=== PATIENT | female | born 1975 | race Hispanic/Latino ===

== ENCOUNTER 2017-05-31 14:06 | Inpatient (IN) | payer MEDICAID, OTHER ==
[2017-05-31 14:15] VITALS: O2SAT 100
--- NOTE | 2017-05-31 14:26 | ED PDOC ---
HPI: Psych/Substance Abuse Time Seen by Provider: 05/31/17 14:21 Chief Complaint (Nursing): Psychiatric Evaluation Chief Complaint (Provider): crisis eval History Per: Patient Additional Complaint(s): 42 year old with history of major depression presents to ED for evaluation of worsening depression. Patient has history of previous suicide attempts. Her sister called crisis department out of concern that patient was seen yesterday at [facility] ED but was not admitted psychiatrically. Patient upon arrival, denies suicidal or homicidal ideation. She offers no acute medical complaints upon arrival. She admits to being non-compliant with her psych meds. Past Medical History Reviewed: Historical Data, Nursing Documentation, Vital Signs Vital Signs: Last Vital Signs Temp 97.7 F 05/31/17 14:11 Pulse 82 05/31/17 14:11 Resp 16 05/31/17 14:11 BP 114/64 05/31/17 14:11 Pulse Ox 100 05/31/17 14:11 - Medical History PMH: Anemia, Anxiety, Asthma, Depression, Hypothyroidism, Migraine - Surgical History Surgical History: Cholecystectomy - Family History Family History: States: No Known Family Hx - Living Arrangements Living Arrangements: With Family - Social History Current smoker - smoking cessation education provided: No Alcohol: None Drugs: Denies - Home Medications Home Medications: Ambulatory Orders Medication Instructions Recorded traZODone [Desyrel] 150 mg PO HS #30 tab 03/29/17 Acetaminophen/Butalbital/Caf 1 tab PO Q8 PRN #10 tab 05/30/17 [Fioricet] Venlafaxine [Effexor XR] 150 mg PO DAILY 05/31/17 - Allergies Allergies/Adverse Reactions: Allergies Allergy/AdvReac Type Severity Reaction Status Date / Time sertraline [From Zoloft] Allergy Intermediate RASH Verified 05/31/17 14:11 Review of Systems ROS Statement: Except As Marked, All Systems Reviewed And Found Negative Constitutional: Negative for: Fever Cardiovascular: Negative for: Chest Pain Respiratory: Negative for: Cough Gastrointestinal: Negative for: Nausea, Vomiting Psych: Positive for: Depression. Negative for: Suicidal ideation Physical Exam - Reviewed Nursing Documentation Reviewed: Yes Vital Signs Reviewed: Yes - Physical Exam Appears: Positive for: Well, Non-toxic, No Acute Distress Skin: Negative for: Rash Eye Exam: Positive for: Normal appearance, EOMI, PERRL Neck: Positive for: Normal Cardiovascular/Chest: Positive for: Regular Rate, Rhythm Respiratory: Positive for: Normal Breath Sounds Gastrointestinal/Abdominal: Positive for: Soft. Negative for: Tenderness, Distended, Guarding, Rebound Back: Negative for: L CVA Tenderness, R CVA Tenderness Extremity: Positive for: Normal ROM Neurologic/Psych: Positive for: Alert, Oriented, Mood/Affect (flat) - Laboratory Results Result Diagrams: 05/31/17 14:58 05/31/17 14:58 Urine POC: Negative Urine dip results: Negative for: Leukocyte Esterase, Blood, Nitrate, Ketones, Glucose, Bilirubin, Protein - ECG Interpretation Of ECG: NSR 73 bpm, no acute change, reviewed by PA and ED attending. O2 Sat by Pulse Oximetry: 100 Pulse Ox Interpretation: Normal - Other Rad CXR X-Ray: Interpreted by Me, Viewed By Me X-Ray Interpretation: no acute finding, no interval changes Medical Decision Making Medical Decision Makin42 year old here for crisis eval Plan: Crisis eval CBC CMP BAL UDSUA EKG CXR As per crisis counselor and psychiatrist motion picture printer, Dr. Zhang, patient does meet criteria for admission. Patient agrees to stay and signed herself in. K is low at 2.9, replacement of 40 meq PO given, d/w Dr. Mcmahan. Patient is medically stable for psychiatric admission. Disposition - Clinical Impression Clinical Impression: Depression - Patient ED Disposition Is Patient to be Admitted: Yes - Disposition Disposition Time: 14:29 Condition: FAIR Forms: Tapastreet (Indonesian) - Pt Status Changed To: Hospital Disposition Of: Inpatient - Admit Certification Admit to Inpatient:: After my assessment, the patient will require hospitalization for at least two midnights. This is because of the severity of symptoms shown, intensity of services needed, and/or the medical risk in this patient being treated as an outpatient. Results - Lab Results Lab Results: 05/31/17 05/31/17 05/31/17 14:58 14:58 14:45 WBC 6.8 RBC 4.39 Hgb 12.2 Hct 37.5 MCV 85.4 MCH 27.8 MCHC 32.5 L RDW 14.4 Plt Count 229 MPV 9.4 Neut % (Auto) 63.8 Lymph % (Auto) 30.2 [place] % (Auto) 5.3 Eos % (Auto) 0.2 Baso % (Auto) 0.5 Neut # 4.4 Lymph # 2.1 [place] # 0.4 Eos # 0.0 Baso # 0.0 Sodium 138 Potassium 2.9 L Chloride 106 Carbon Dioxide 20 L Anion Gap 15 BUN 5 L Creatinine 0.5 L Est GFR ( Amer) > 60 Est GFR (Non-Af Amer) > 60 Random Glucose 145 H Calcium 9.1 Total Bilirubin 0.5 AST 22 ALT 27 Alkaline Phosphatase 72 Total Protein 7.6 Albumin 4.1 Globulin 3.5 Albumin/Globulin Ratio 1.2 Urine Color Colorless Urine Clarity Clear Urine pH 7.0 Ur Specific [place] < 1.005 Urine Protein Negative Urine Glucose (UA) Neg Urine Ketones Negative Urine Blood Negative Urine Nitrate Negative Urine Bilirubin Negative Urine Urobilinogen 0.2-1.0 Ur Leukocyte Esterase Neg Urine Microscopic WBC < 1 Ur Squamous Epith Cells < 1 Urine Bacteria Rare Urine Opiates Screen Urine Methadone Screen Ur Barbiturates Screen Ur Phencyclidine Scrn Ur Amphetamines Screen U Benzodiazepines Scrn U Oth Cocaine Metabols U Cannabinoids Screen Alcohol, Quantitative < 10 05/31/17 14:45 WBC RBC Hgb Hct MCV MCH MCHC RDW Plt Count MPV Neut % (Auto) Lymph % (Auto) [place] % (Auto) Eos % (Auto) Baso % (Auto) Neut # Lymph # [place] # Eos # Baso # Sodium Potassium Chloride Carbon Dioxide Anion Gap BUN Creatinine Est GFR ( Amer) Est GFR (Non-Af Amer) Random Glucose Calcium Total Bilirubin AST ALT Alkaline Phosphatase Total Protein Albumin Globulin Albumin/Globulin Ratio Urine Color Urine Clarity Urine pH Ur Specific [place] Urine Protein Urine Glucose (UA) Urine Ketones Urine Blood Urine Nitrate Urine Bilirubin Urine Urobilinogen Ur Leukocyte Esterase Urine Microscopic WBC Ur Squamous Epith Cells Urine Bacteria Urine Opiates Screen Negative Urine Methadone Screen Negative Ur Barbiturates Screen Positive H Ur Phencyclidine Scrn Negative Ur Amphetamines Screen Negative U Benzodiazepines Scrn Negative U Oth Cocaine Metabols Negative U Cannabinoids Screen Negative Alcohol, Quantitative
[2017-05-31 15:18] LABS: BASO % 0.5 % (0.0-2.0); EOS % 0.2 % (0.0-4.0); HEMOGLOBIN 12.2 g/dL (12.0-16.0); LYMPH # 2.1 K/uL (1.0-4.3); LYMPH % 30.2 % (20.0-40.0); MEAN CELL VOLUME 85.4 fl (81.0-99.0); MEAN CORPUSCULAR HEMOGLOBIN 27.8 pg (27.0-31.0); MEAN CORPUSCULAR HGB CONC 32.5 g/dL (33.0-37.0); MEAN PLATELET VOLUME 9.4 fl (7.2-11.7); MONO # 0.4 K/uL (0.0-0.8); MONO % 5.3 % (0.0-10.0); NEUT # 4.4 K/uL (1.8-7.0); NEUT % 63.8 % (50.0-75.0); NRBC % 0.1 % (0.0-0.0); RBC 4.39 Mil/uL (3.80-5.20); RED CELL DISTRIBUTION WIDTH 14.4 % (11.5-14.5); WHITE BLOOD COUNT 6.8 K/uL (4.8-10.8)
[2017-05-31 15:21] LABS: SQUAMOUS EPITHIAL < 1 /hpf (0-5); URINE BACTERIA RARE (<OCC); URINE BILIRUBIN NEGATIVE (NEGATIVE); URINE BLOOD NEGATIVE (NEGATIVE); URINE CLARITY CLEAR (Clear); URINE COLOR COLORLESS (YELLOW); URINE GLUCOSE (UA) NEG (Normal); URINE LEUKOCYTE ESTERASE NEG Leu/uL (Negative); URINE NITRATE NEGATIVE (NEGATIVE); URINE PROTEIN NEGATIVE (NEGATIVE); URINE UROBILINOGEN 0.2-1.0 mg/dL (0.2-1.0)
[2017-05-31 15:26] LABS: ALB/GLOB RATIO 1.2 (1.0-2.1); ALBUMIN 4.1 g/dL (3.5-5.0); ALT/SGPT 27 U/L (9-52); AST/SGOT 22 U/L (14-36); BLOOD UREA NITROGEN 5 mg/dl (7-17); CALCIUM 9.1 mg/dL (8.4-10.2); GFR AFRICAN-AMERICAN > 60; GFR NON-AFRICAN AMERICAN > 60
[2017-05-31 15:38] LABS: BARBITURATES, UR POSITIVE (NEGATIVE); BENZODIAZEPINES, UR NEGATIVE (NEGATIVE); OPIATES, UR NEGATIVE (NEGATIVE); PHENCYCLIDINE, UR NEGATIVE (NEGATIVE)
[2017-05-31] MEDS ORDERED: Potassium Chloride 20 mEq ER Tab PO STA (15:39)
[2017-05-31] MEDS ORDERED: Magnesium Hydroxide Susp 30 ml UD PO PRN (18:05)
[2017-05-31] MEDS ORDERED: Alum-Mag Hydrox-Simethicone Susp (30 mL) PO PRN (18:05)
[2017-05-31] MEDS ORDERED: DiphenhydrAMINE 50 mg/ml Inj IM PRN (18:05)
[2017-05-31] MEDS: Apap-Butalbital-Caffeine 325-50-40mg Tab PO PRN (20:04)
--- NOTE | 2017-05-31 20:50 | CP.PCM.CON ---
History of Present Illness - History of Present Illness History of Present Illness: Medicine consult PMD Dr Marquez Rodriguez Hx taken from patient we are called to evaluate this 42 y/o F with PMhx of depression, chronic headaches and opioids abuse presents to hosp c/o worsening depression. Patient has Hx of chronic depression, denies suicidal or homicidal ideation but states she would like help to get better of her depression. She states taking meds as prescribed. Patient has Hx of chronic headaches for she takes Fioricet PRN. and F/U with Dr Krueger(neurologist). She states she has headaches everyday and they are intermittent, located in the R/side of the head and R/eye. Denies paresthesias, nausea, vomiting, CP, palpitations, SOB, vision changes. She also c/o watery diarrhea for the past 5 days, NBNM, 4-5 episode per/day. Denies taking abx recently and does not recall when was the last time. No recent travel hx or medication changes as per patient. ED course: VS WNL CBC WNL potassium 2.9: 40 meq KCL given at ED Utox positive for barbiturates(patient on Fioricet) Review of Systems - Review of Systems All systems: reviewed and no additional remarkable complaints except - Constitutional Constitutional: Headache - Gastrointestinal Gastrointestinal: Diarrhea - Psychiatric Psychiatric: Depression. absent: Homicidal Ideation, Suicidal Ideation Past Patient History - Infectious Disease Hx of Infectious Diseases: None - Past Medical History & Family History Past Medical History?: Yes - Past Social History Alcohol: None Drugs: Denies - CARDIAC Hx Cardiac Disorders: No - PULMONARY Hx Respiratory Disorders: No - NEUROLOGICAL Hx Neurological Disorder: Yes Hx Migraine: Yes - HEENT Hx HEENT Problems: No - RENAL Hx Chronic Kidney Disease: No - ENDOCRINE/METABOLIC Hx Endocrine Disorders: No Hx Hypothyroidism: No - HEMATOLOGICAL/ONCOLOGICAL Hx Blood Disorders: No - INTEGUMENTARY Hx Dermatological Problems: No - MUSCULOSKELETAL/RHEUMATOLOGICAL Hx Musculoskeletal Disorders: No - GASTROINTESTINAL Hx Gastrointestinal Disorders: No - GENITOURINARY/GYNECOLOGICAL Hx Genitourinary Disorders: No Hx Sexually Transmitted Disorders: No - PSYCHIATRIC Hx Depression: Yes Hx Substance Use: Yes (opiates) - SURGICAL HISTORY Hx Section: Yes Hx Cholecystectomy: Yes Hx Musculoskeletal Surgery: Yes (Ankle) - ANESTHESIA Hx Anesthesia: Yes Hx Anesthesia Reactions: No Meds Allergies/Adverse Reactions: Allergies Allergy/AdvReac Type Severity Reaction Status Date / Time sertraline [From Zoloft] Allergy Intermediate RASH Verified 05/31/17 14:11 - Medications Medications: Current Medications Acetaminophen (Tylenol 325mg Tab) 650 mg PO Q4 PRN PRN Reason: Pain, moderate (4-7) Acetaminophen/Butalbital/Caffeine (Fioricet) 1 tab PO Q8 PRN PRN Reason: migrane Last Admin: 05/31/17 20:04 Dose: 1 tab Al Hydrox/Mg Hydrox/Simethicone (Maalox Plus 30 Ml) 30 ml PO Q4 PRN PRN Reason: Dyspepsia Diphenhydramine HCl (Benadryl) 50 mg IM Q6 PRN PRN Reason: Extrapyramidal S/S Unable PO Diphenhydramine HCl (Benadryl) 50 mg PO Q6 PRN PRN Reason: Extrapyramidal Symptoms Haloperidol (Haldol) 5 mg PO Q8 YVETTE Haloperidol Lactate (Haldol) 5 mg IM Q8 YVETTE Lorazepam (Ativan) 0.5 mg IM Q4 PRN PRN Reason: Anxiety/Agitation,Unable PO Lorazepam (Ativan) 0.5 mg PO Q4 PRN PRN Reason: Anxiety/Agitation Magnesium Hydroxide (Milk Of Magnesia) 30 ml PO HS PRN PRN Reason: Constipation Trazodone HCl (Desyrel) 50 mg PO HS YVETTE Physical Exam - Constitutional Appears: Non-toxic, No Acute Distress - Head Exam Head Exam: NORMAL INSPECTION - Eye Exam Eye Exam: EOMI, PERRL - ENT Exam ENT Exam: Mucous Membranes Moist - Respiratory Exam Respiratory Exam: Clear to Auscultation Bilateral, NORMAL BREATHING PATTERN. absent: Rales, Wheezes - Cardiovascular Exam Cardiovascular Exam: REGULAR RHYTHM, +S1, +S2. absent: Gallop - GI/Abdominal Exam GI & Abdominal Exam: Normal Bowel Sounds, Soft. absent: Distended, Guarding, Mass, Tenderness - Extremities Exam Extremities exam: Positive for: normal inspection. Negative for: calf tenderness, joint swelling, tenderness - Neurological Exam Neurological exam: Alert, Normal Gait, Oriented x3 - Psychiatric Exam Psychiatric exam: Depressed - Skin Skin Exam: Normal Color, Warm Results - Vital Signs Recent Vital Signs: Last Vital Signs Temp 97.7 F 05/31/17 16:57 Pulse 82 05/31/17 16:57 Resp 18 05/31/17 17:41 BP 114/64 05/31/17 16:57 Pulse Ox 100 05/31/17 15:44 - Labs Result Diagrams: 05/31/17 14:58 05/31/17 14:58 Assessment & Plan - Assessment and Plan (Free Text) Assessment: 42 y/o F with PMHx of Depression and Migraines admitted to hosp for worsening depression Depression(chronic) no currently suicidal or homicidal Managed by Psych team Migraine headaches c/w Fioricet Q8h PRN(home med) Acute Diarrhea no Hx of recent abx use VS WNL Florastor BID F/U O&P x3 F/U stool Cx regular diet Encouraged to drink plenty of fluids No signs of dehydration at this time Hypokalemia Poss due to diarrhea S/P 40meq of KCL at ED F/U BMP tomorrow
[2017-06-01] MEDS: Apap-Butalbital-Caffeine 325-50-40mg Tab PO PRN ×2 (07:00→16:34)
[2017-06-01 07:22] LABS: BLOOD UREA NITROGEN 5 mg/dl (7-17); CALCIUM 8.8 mg/dL (8.4-10.2); GFR AFRICAN-AMERICAN > 60; GFR NON-AFRICAN AMERICAN > 60; HDL CHOLESTEROL 50 MG/DL (30-70)
[2017-06-01 07:33] LABS: LDL CHOLESTEROL 137 mg/dL (0-129)
[2017-06-01 07:39] LABS: T4 8.18 ug/dl (5.5-11.0)
--- NOTE | 2017-06-01 07:40 | CARD ---
APPROVED REPORT EKG Measurement Heart [id number] <Conclusion> Normal sinus rhythm Minimal voltage criteria for LVH, may be normal variant Borderline ECG
[2017-06-01] MEDS: Saccharomyces Boulardi 250 mg Cap PO SCH ×2 (08:17→16:36)
--- NOTE | 2017-06-01 08:36 | RAD ---
HISTORY: clearance COMPARISON: Comparison is made to 11/29/2015 FINDINGS: LUNGS: No significant interval change in the lungs noted. PLEURA: No significant pleural effusion identified, no pneumothorax apparent. CARDIOVASCULAR: Normal. OSSEOUS STRUCTURES: No significant abnormalities. VISUALIZED UPPER ABDOMEN: Normal. OTHER FINDINGS: None. IMPRESSION: No active disease.
--- NOTE | 2017-06-01 09:01 | PCM.PSYCH ---
Initial Psychiatric Evaluation - Initial Psychiatric Evaluation Type of Admission: Voluntary Legal Status: Capacity Chief Complaint (in patient's own words): "I've been depressed." Patient's Reaction to Hospitalization: HPI: 42 yo female presented w/ worsening depression and passive suicidal ideation (w/o plan/intent) in the context of non-compliance. + Depressed mood +Anxiety +Sleep/appetite disturbances. NO current SI/HI/AH/VH. The bulb farmworker received several calls from the patient's "sister" requesting that the patient be admitted to the hospital. Patient later admitted to video game script writer that she is the one who made those phone calls because she wanted to be admitted. She now states that she wants to go home because she is not an acute danger to herself and would like to restart her medications and get outpatient treatment. She also reports a significant history of prescription opioid abuse and states that she is having difficulty transitioning to a life w/o prescription opioids. PPHx: Pt has multiple past psyciatric admission and h/o detox at [facility]. Last admission March 2017. Outpatient tx w/ Dr. Hutson. H/O suicide attempt by overdose March 2017. PMHx: Migraines SHx: From [facility]. Has 3 children who are under the care of her sister. H/o opioid abuse in remission. ALL: NKDA Current Medications: Active Medications Generic Name Dose Route Start Last Admin Trade Name Freq PRN Reason Stop Dose Admin Acetaminophen 650 mg 05/31/17 18:05 Tylenol 325mg Tab PO Q4 PRN Pain, moderate (4-7) Acetaminophen/Butalbital/Caffeine 1 tab 05/31/17 19:38 06/01/17 07:00 Fioricet PO 1 tab Q8 PRN Administration migrane Al Hydrox/Mg Hydrox/Simethicone 30 ml 05/31/17 18:05 Maalox Plus 30 Ml PO Q4 PRN Dyspepsia Diphenhydramine HCl 50 mg 05/31/17 18:05 Benadryl IM Q6 PRN Extrapyramidal S/S Unable PO Diphenhydramine HCl 50 mg 05/31/17 18:05 Benadryl PO Q6 PRN Extrapyramidal Symptoms Haloperidol 5 mg 06/01/17 08:03 Haldol PO Q8 PRN Agitation Haloperidol Lactate 5 mg 06/01/17 08:04 Haldol IM Q8 PRN Agitation Lorazepam 0.5 mg 05/31/17 18:05 Ativan IM Q4 PRN Anxiety/Agitation,Unable PO Lorazepam 0.5 mg 05/31/17 18:30 Ativan PO Q4 PRN Anxiety/Agitation Magnesium Hydroxide 30 ml 05/31/17 18:05 Milk Of Magnesia PO HS PRN Constipation Saccharomyces Boulardii 250 mg 06/01/17 09:00 06/01/17 08:17 Florastor PO 250 mg BID YVETTE Administration Trazodone HCl 50 mg 05/31/17 22:00 05/31/17 21:00 Desyrel PO 50 mg HS YVETTE Administration Past Psychiatric History - Past Psychiatric History Previous Treatment History: Inpatient Pertinent Medical Hx (Current Medical&Sleep Prob, Allergies): Allergies Allergy/AdvReac Type Severity Reaction Status Date / Time sertraline [From Zoloft] Allergy Intermediate RASH Verified 05/31/17 14:11 traZODone [Desyrel] 150 mg PO HS #30 tab 03/29/17 Acetaminophen/Butalbital/Caf [Fioricet] 1 tab PO Q8 PRN #10 tab 05/30/17 Venlafaxine [Effexor XR] 150 mg PO DAILY 05/31/17 Review of Systems - Psychiatric Psychiatric: As Per HPI, Abnormal Sleep Pattern, Anhedonia, Anxiety, Change in Appetite, Depression, Mood Swings, Suicidal Ideation (Passive, no active plan or intent) Mental Status Examination - Personal Presentation Personal Presentation: Looks stated age - Affect Affect: Broad - Motor Activity Motor Activity: Calm - Reliability in Providing Information Reliability in Providing Information: Good (Good, but tells lies at times ) - Speech Speech: Organized - Mood Mood: Depressed - Formal Thought Process Formal Thought Process: No Impairment - Hallucinations/Delusions Additional comments: No AH/VH/paranoia/delusions - Obsessions/Compulsions Obsessions: No Compulsions: No - Cognitive Functions Orientation: Person, Place, Situation, Time Sensorium: Alert Attention/Concentration: Attentive Judgement: Intact, as evidence by: Insight regarding need for hospitalization Memory: Recent intact, as evidence by: Ability to recall events of the day, Remote intact, as evidenced by: Abilit to recall sig. life events, Remote intact , as evidenced by: Ability to recall historical events - Risk Risk: Diminished functioning - Strength & Assets Inventory Strength & Assets Inventory: Family support, Cooperative DSM 5 DX - DSM 5 DSM 5 Diagnosis: Major Depressive Disorder; Opioid Use Disorder - Recommended/Plan of Treatment Treatment Recommendations and Plan of Treatment: Major Depressive Disorder; Opioid Use Disorder -Admit to psychiatry -Restart Effexor 75 mg PO Daily -Continue Trazodone 150 mg PO HS -Patient will be given a 48 hour letter at her request -Individual and group therapy -Disposition planning Projected ELOS: 2-5 days Discharge Plan and Discharge Criteria: Discharge when psychiatrically stable - Smoking Cessation Smoking Cessation Initiated: No Reason for not providing: Not indicated
[2017-06-02] MEDS: Apap-Butalbital-Caffeine 325-50-40mg Tab PO PRN ×2 (04:31→18:31)
[2017-06-02] MEDS: Saccharomyces Boulardi 250 mg Cap PO SCH ×2 (08:12→16:03)
--- NOTE | 2017-06-02 10:06 | PCM.PYCHPN ---
Psychiatric Progress Note - Psychiatric Progress Note Patient seen today, length of contact: Patient evaluated, case discussed with team, chart reviewed, 35 min Patient Chief Complaint: "I'm feeling better" Problems Identified/Issues Discussed: Patient discussed her concerns about relapsing on drugs. Psychoeducation and motivational therapy provided. She reports that her mood is improving. We discussed the importance of compliance with medications. No suicidal ideation. Patient is requesting to be discharged, she submitted a 48 hour letter and then later retracted it. We discussed likely discharge tomorrow. Medication Change: No Medical Record Reviewed: Yes Mental Status Examination - Cognitive Function Orientation: Person, Place, Situation, Time Memory: Intact Attention: WNL Concentration: WNL Association: WNL Fund of Knowledge: WNL - Mood Mood: Depressed - Affect Affect: Broad - Speech Speech: Appropriate - Formal Thought Process Formal Thought Process: No Impairment Psychotic Thoughts and Behaviors: NO AH/VH/paranoia/delusions - Suicidal Ideation Suicidal Ideation: No - Homicidal Ideation Homicidal Ideation: No Goal/Treatment Plan - Goal/Treatment Plan Need for Continued Stay: Remain at risks for inpatient hospitalization, Severe depression anxiety Progress Toward Problem(s) and Goals/Treatment Plan: Major Depressive Disorder; Opioid Use Disorder -Continue Effexor 75 mg PO Daily -Continue Trazodone 150 mg PO HS -Individual and group therapy -Disposition planning- likely discharge tomorrow w/ outpatient follow-up Estimated Date of D/C: 06/03/17
[2017-06-03] MEDS: Apap-Butalbital-Caffeine 325-50-40mg Tab PO PRN (05:21)
[2017-06-03 06:39] VITALS: BP 106/72; PULSE 59; RESP 20; TEMP 97.9
[2017-06-03 07:50] LABS: BLOOD UREA NITROGEN 7 mg/dl (7-17); CALCIUM 8.9 mg/dL (8.4-10.2); GFR AFRICAN-AMERICAN > 60; GFR NON-AFRICAN AMERICAN > 60
[2017-06-03] MEDS: Saccharomyces Boulardi 250 mg Cap PO SCH (08:26)
--- NOTE | 2017-06-03 08:26 | PCM.PYCHDC ---
Mental Status Examination - Mental Status Examination Orientation: Person, Place, Situation, Time Memory: Intact Mood: Neutral Affect: Broad Speech: Appropriate Attention: WNL Concentration: WNL Association: WNL Fund of Knowledge: WNL Formal Thought Process: No Impairment Description of patient's judgement and insight: Fair I/J; Patient is intentionally dishonest and manipulative at times Psychotic Thoughts and Behaviors: NO AH/VH/paranoia/delusions Suicidal Ideation: No Current Homicidal Ideation?: No Discharge Summary - Discharge Note Reason for Hospitalization: HPI: 42 yo female presented w/ worsening depression and passive suicidal ideation (w/o plan/intent) in the context of non-compliance. + Depressed mood +Anxiety +Sleep/appetite disturbances. NO current SI/HI/AH/VH. The plier worker received several calls from the patient's "sister" requesting that the patient be admitted to the hospital. Patient later admitted to song writer that she is the one who made those phone calls because she wanted to be admitted. She now states that she wants to go home because she is not an acute danger to herself and would like to restart her medications and get outpatient treatment. She also reports a significant history of prescription opioid abuse and states that she is having difficulty transitioning to a life w/o prescription opioids. PPHx: Pt has multiple past psyciatric admission and h/o detox at [facility]. Last admission March 2017. Outpatient tx w/ Dr. Hutson. H/O suicide attempt by overdose March 2017. PMHx: Migraines [facility]: [facility] Has 3 children who are under the care of her sister. H/o opioid abuse in remission. ALL: NKDA Laboratory Data: Abnormal Lab Results 06/03/17 06:00 Sodium 139 Potassium 3.6 Chloride 105 Carbon Dioxide 27 Anion Gap 10 BUN 7 Creatinine 0.5 L Est GFR ( Amer) > 60 Est GFR (Non-Af Amer) > 60 Random Glucose 101 Calcium 8.9 Consultations:: List each consultation separately and include: 1. Reason for request. 2. Findings. 3. Follow-up Consultations: Medicine consult Summary of Hospital Course include:: 1. Description of specific treatment plan utilized for patients during their course of treatmen. 2. Summarize the time- course for resolution of acute symptoms and/or regressed behaviors. 3. Describe issues identified and worked on during hospitalization. 4. Describe medication utilized. 5. Describe medical problems identified and treated. 6. Reassessment of suicide risk Summary of Hospital Course: Patient was admitted to the hospital. She was restarted on Effexor 75 mg PO Daily and continued on Trazodone 150 mg PO HS. Individual and group therapy were provided. Patient reports improved mood and does not report any SI/HI. Patient is psychiatrically stable for discharge. - Final Diagnosis (DSM 5) Condition upon Discharge: FAIR DSM 5: Major Depressive Disorder, Opioid (prescription) Use Disorder Disposition: HOME/ ROUTINE Follow-up Treatment Plan: Major Depressive Disorder; Opioid Use Disorder; patient is currently psychiatrically stable for discharge. -Continue Effexor 75 mg PO Daily -Continue Trazodone 150 mg PO HS -Individual and group therapy -Discharge w/ outpatient f/u Prescriptions/Medication Reconciliation: traZODone [Desyrel] 150 mg PO HS #90 tab Venlafaxine [Effexor-XR] 75 mg PO DAILY #30 cer - Smoking Cessation Smoking Cessation Medication prescribed: No Reason for not providing: Not indicated - Antipsychotic Medications Pt discharged on 2 or more routine antipsychotic medications: No
== END 2017-06-03 12:15 | disposition home or self-care (01) | DRG 426 ==
LOC: H.ER 14:06 → H.ERHOLD 15:39 → H.STEP 17:25
PROVIDERS: ADMIT Psychiatry & Neurology Psychiatry; ATTEND Psychiatry & Neurology Psychiatry
PROC: GZ3ZZZZ Medication Management (ICD-10-PCS; principal; 2017-05-31)
PROC: GZHZZZZ Group Psychotherapy (ICD-10-PCS; 2017-05-31)
PROC: GZ56ZZZ Individual Psychotherapy, Supportive (ICD-10-PCS; 2017-05-31)
DX: F32.9 Major depressive disorder, single episode, unspecified (principal); Z91.19 Patient's noncompliance with other medical treatment and regimen; E03.9 Hypothyroidism, unspecified; E87.6 Hypokalemia; F11.90 Opioid use, unspecified, uncomplicated; G43.909 Migraine, unspecified, not intractable, without status migrainosus; R19.7 Diarrhea, unspecified; J45.909 Unspecified asthma, uncomplicated; Z79.899 Other long term (current) drug therapy; Z90.49 Acquired absence of other specified parts of digestive tract; Z91.5 Personal history of self-harm

== ENCOUNTER 2019-03-11 06:03 | Emergency (ER) | payer MEDICAID, OTHER ==
[2019-03-11 06:26] VITALS: BP 132/84; PULSE 82; RESP 18; TEMP 98.4; O2SAT 98
--- NOTE | 2019-03-11 06:32 | ED PDOC ---
Lower Extremity Pain/Injury Chief Complaint (Provider): Right knee pain History Per: Patient History/Exam Limitations: no limitations Onset/Duration Of Symptoms: Days (3) Current Symptoms Are (Timing): Still Present Additional Complaint(s): 44 year old female presents to the ED for an evaluation of right knee pain onset for 3 days. Patient reports to stumping down one step. The pain on the knee has worsened and she took Ibuprofen and Tylenol with codeine without any relief. Currently, she is unable to strengthen her right knee and it is swollen. Otherwise, patient denies numbness, weakness or tingling. Patient is able to ambulate in the ED. PMD: Non [facility] provider <Emilia Hirsch - Last Filed: 03/11/19 06:29> <Faisal Felder III - Last Filed: 03/11/19 09:10> Time Seen by Provider: 03/11/19 06:19 Chief Complaint (Nursing): Lower Extremity Problem/Injury Past Medical History Reviewed: Historical Data, Nursing Documentation, Vital Signs Vital Signs: Last Vital Signs Temp 98.4 F 03/11/19 06:17 Pulse 82 03/11/19 06:17 Resp 18 03/11/19 06:17 BP 132/84 03/11/19 06:17 Pulse Ox 98 03/11/19 06:17 Primary Care Provider: FAMILY PROVIDER,NO - Medical History PMH: Anemia, Anxiety, Asthma, Depression, Migraine, Pneumonia Denies: Diabetes, Hepatitis, HIV, HTN, Hypothyroidism, Chronic Kidney Disease, Seizures, Sexually Transmitted Disease - Surgical History Surgical History: Cholecystectomy - Family History Family History: States: Unknown Family Hx - Immunization History Hx Tetanus Toxoid Vaccination: Yes Hx Influenza Vaccination: Yes (08/2017) Hx Pneumococcal Vaccination: Yes (08/2017) <Emilia Hirsch - Last Filed: 03/11/19 06:29> Vital Signs: Last Vital Signs Temp 98.4 F 03/11/19 06:17 Pulse 82 03/11/19 06:17 Resp 18 03/11/19 06:17 BP 132/84 03/11/19 06:17 Pulse Ox 98 03/11/19 06:37 <Faisal Felder III - Last Filed: 03/11/19 09:10> - Home Medications Home Medications: Ambulatory Orders Medication Instructions Recorded Acetaminophen/Butalbital/Caf 1 tab PO TID PRN #20 tab 05/24/18 [Fioricet] Azithromycin [Zithromax] 250 mg PO DAILY #4 tab 05/24/18 traZODone [Desyrel] 150 mg PO HS PRN 05/24/18 Albuterol/Ipratropium [Duoneb 3 6 ml IH Q4H PRN #100 neb 05/26/18 MG/3 Ml-0.5 MG/3 Ml 3 Ml] Prednisone [Deltasone] 40 mg PO DAILY #8 tablet 05/26/18 Ibuprofen [Motrin Tab] 600 mg PO Q6 PRN #15 tab 03/11/19 traMADol [Ultram] 50 mg PO TID PRN #12 tab 03/11/19 - Allergies Allergies/Adverse Reactions: Allergies Allergy/AdvReac Type Severity Reaction Status Date / Time sertraline [From Zoloft] Allergy Intermediate RASH Verified 03/11/19 06:21 Review of Systems ROS Statement: Except As Marked, All Systems Reviewed And Found Negative Musculoskeletal: Positive for: Other (right knee pain ) Neurological: Negative for: Weakness, Numbness <Emilia Hirsch - Last Filed: 03/11/19 06:29> Physical Exam - Reviewed Nursing Documentation Reviewed: Yes Vital Signs Reviewed: Yes - Physical Exam Appears: Positive for: Non-toxic Head Exam: Positive for: ATRAUMATIC, NORMAL INSPECTION, NORMOCEPHALIC Skin: Positive for: Normal Color, Warm, Dry. Negative for: Rash Eye Exam: Positive for: Normal appearance Extremity: Positive for: Swelling (right knee). Negative for: Normal ROM (unable to determine ROM seondary to pain ), Deformity Neurological/Psych: Positive for: Awake, Alert, Normal Tone, Oriented (x3) <Emilia Hirsch - Last Filed: 03/11/19 06:29> - ECG O2 Sat by Pulse Oximetry: 98 (RA) Pulse Ox Interpretation: Normal <Emilia Hirsch - Last Filed: 03/11/19 06:29> Medical Decision Making Medical Decision Making: Time: 627 Impression: injury most likely ligament vs meniscus Plan: Right knee x-ray Percocet for pain Re-evaluation 0700 Patient care endorsed to Dr. Felder pending x-ray and re-evaluation Scribe Attestation: Documented by Kylie Bejarano, acting as a scribe for Emilia Hirsch MD Provider Scribe Attestation: All medical record entries made by the Scribe were at my direction and personally dictated by me. I have reviewed the chart and agree that the record accurately reflects my personal performance of the history, physical exam, medical decision making, and the department course for this patient. I have also personally directed, reviewed, and agree with the discharge instructions and disposition. <Emilia Hirsch - Last Filed: 03/11/19 06:29> Medical Decision Makin: X-ray reviewed by me and appears chronic changes. Will place a nebulizer and follow up with Dr. Rodriguez. Referral to orthopedic. <Faisal Felder III - Last Filed: 03/11/19 09:10> Disposition - Disposition Disposition: Transfer of Care Disposition Time: 07:00 Patient Signed Over To: Faisal Felder III <Emilia Hirsch - Last Filed: 03/11/19 06:29> <Faisal Felder III - Last Filed: 03/11/19 09:10> - Clinical Impression Clinical Impression: Internal derangement of knee, Knee pain - Disposition Referrals: Marquez Rodriguez MD [Primary Care Provider] - Condition: STABLE Additional Instructions: Wear knee immobilizer, take pain medicine as needed and directed but minimize tramadol use. Prescriptions: Ibuprofen [Motrin Tab] 600 mg PO Q6 PRN #15 tab PRN Reason: Pain, Moderate (4-7) traMADol [Ultram] 50 mg PO TID PRN #12 tab PRN Reason: Pain, Severe (8-10) Instructions: Internal Derangement of the Knee, Opioids for Short-Term Treatment of Pain, Knee Pain (DC) Forms: [employer] (T[place]anian)
[2019-03-11] MEDS ORDERED: Oxycodone/Acetaminophen 5/325 mg Tab PO STA (06:33)
[2019-03-11] MEDS ORDERED: Oxycodone/Acetaminophen 5/325 mg Tab ONE (06:55)
--- NOTE | 2019-03-11 11:07 | RAD ---
Date of service: 03/11/2019 PROCEDURE: Right Knee Radiographs. HISTORY: right knee pain and swelling COMPARISON: Comparison is made to the previous study dated 06/02/2013 TECHNIQUE: Four views obtained. FINDINGS: BONES: No evidence of acute fracture. JOINTS: Moderate to severe osteoarthritic changes are noted. JOINT EFFUSION: [id number] suprapatellar joint effusion is also noted. OTHER FINDINGS: Mild to moderate soft tissue swelling. IMPRESSION: No evidence of acute fracture or dislocation. Moderate osteoarthritic changes. Small to moderate size joint effusion.
== END 2019-03-11 09:16 | disposition home or self-care (01) ==
LOC: H.ER 06:03
DX: M23.91 Unspecified internal derangement of right knee (principal); Z86.59 Personal history of other mental and behavioral disorders; J45.909 Unspecified asthma, uncomplicated; W22.8XXA Striking against or struck by other objects, initial encounter